=== PATIENT | male | born 1995 | race Asian ===

== ENCOUNTER 2017-03-02 07:23 | Emergency (ER) | payer OTHER ==
[~2017-03-02] VITALS: Ht 170 cm; Wt 53.0 kg
[2017-03-02 07:30] VITALS: BP 112/56
[2017-03-02 08:04] VITALS: TEMP 98.7
[2017-03-02 08:40] LABS: INFLUENZA A NEGATIVE; INFLUENZA B NEGATIVE
[2017-03-02 09:35] VITALS: PULSE 77
== END 2017-03-02 09:34 | disposition home or self-care (01) ==
LOC: COL.ER 07:23
PROVIDERS: Physician Assistant
DX: J11.1 Influenza due to unidentified influenza virus with other respiratory manifestations (principal)

== ENCOUNTER 2019-01-12 20:14 | Emergency (ER) | payer OTHER ==
[~2019-01-12] VITALS: Ht 178 cm; Wt 64.1 kg
[2019-01-12 20:19] VITALS: BP 130/62; TEMP 102.3
[2019-01-12 20:58] LABS: STREP SCREEN NEGATIVE
[2019-01-12] MEDS ORDERED: TAMIFLU 75MG75 MG PO (21:34)
[2019-01-12 21:45] VITALS: PULSE 90
== END 2019-01-12 21:45 | disposition home or self-care (01) ==
LOC: COL.ER 20:14
PROVIDERS: Emergency Medicine
DX: J11.1 Influenza due to unidentified influenza virus with other respiratory manifestations (principal)